=== PATIENT | male | born 1970 | race African-American/Black ===

== ENCOUNTER 2019-02-03 17:12 | Emergency (ER) | payer OTHER ==
[~2019-02-03] VITALS: Ht 180.3 cm; Wt 104.3 kg
[2019-02-03 18:31] VITALS: BP 134/88
== END 2019-02-03 18:37 | disposition home or self-care (01) ==
LOC: ER 17:12
DX: M25.551 Pain in right hip (principal); W22.8XXA Striking against or struck by other objects, initial encounter; Y93.89 Activity, other specified; Y92.69 Other specified industrial and construction area as the place of occurrence of the external cause; Y99.9 Unspecified external cause status